=== PATIENT | male | born 1945 | race Caucasian/White ===

== ENCOUNTER 2016-12-01 06:29 | Inpatient (IN) | payer MEDICARE, OTHER ==
--- NOTE | ~2016-12-01 | OP ---
Record Of Operation [facility] [address] [place]. [address] NAME: JONATHAN GARVEY : 41 STATUS : ADM IN PAT#: [id number] AGE: 71 ADM/REG DATE : 12/01/16 MR#: [id number] REPORT SERV DATE: 12/04/16 DICTATED BY: JIN WEATHERS JR. DATE: 12/03/16 REPORT STATUS : Draft TRANSCRIBED BY: MODL DATE: 12/03/16 DATE OF PROCEDURE: 12/03/2016 SURGEON: Jin Weathers M.D. ENDO TECH: Sherley Galarza. PROCEDURE: Exploratory laparotomy, resection of portion of ileum with ileoileostomy; resection of sigmoid colon with coloproctostomy. PREOPERATIVE DIAGNOSIS: Small bowel obstruction. POSTOPERATIVE DIAGNOSIS: Small bowel obstruction with Crohn's disease and sigmoid diverticulitis. ANESTHESIA: General. INDICATIONS: The patient has history of intraabdominal surgery with repair of recurrent ventral hernia and also cholecystectomy. He was admitted two or three days prior with complaints of abdominal pain with nausea, emesis, and cramping. His initial imaging demonstrated small bowel obstruction. Initially, this appeared to improve over the first 24 hours, but then persisted and worsened with increasing vomiting and persistent small bowel distention on x-rays consistent with small bowel obstruction, and operation was indicated. FINDINGS: On exploration of the abdomen, there was moderate to large amount of ascites present that was clear. There was distended small bowel to the area of the ileum, where there was a segment of inflamed bowel with thickening fibrosis, fat wrapping, and then relatively spared distal ileum. This was the site of the obstruction. This area was resected, and gross examination with pathology showed this was likely consistent with Crohn's disease on the base of the gross findings with grossly negative margins. Satisfactory ileoileostomy was created. Additionally, there was a mass in the area of the sigmoid colon. This appeared to be at least partially obstructing and he would like to proceed with resection of this. This demonstrated diverticulitis with no evidence of any neoplasm. A coloproctostomy was created. No other significant findings were encountered. There was a previous hernia repair, which was intact. Hernia mesh was divided and reapproximated to enter the abdomen. There were essentially no adhesions. DESCRIPTION OF PROCEDURE: With adequate general anesthesia, the patient was placed in the supine position. The abdomen was prepped and draped sterilely. A midline incision was made. The dissection was carried down sharply through the subcutaneous tissues. The fascia was divided. The underlying mesh was divided and the peritoneum cavity was entered. The above-noted findings were encountered. Sites were selected for revision of the ileum, proximal and distal to the abnormality and this was accomplished with CELE 75. Then, the mesentery was divided with the LigaSure device and this enabled to remove the specimen that was submitted to pathology fresh for examination with the above results. Mesenteric Record Of Operation [facility] [address] [place]. [address] NAME: JONATHAN GARVEY : 41 STATUS : ADM IN PAT#: [id number] AGE: 71 ADM/REG DATE : 12/01/16 MR#: [id number] REPORT SERV DATE: 12/04/16 DICTATED BY: JIN WEATHERS JR. DATE: 12/03/16 REPORT STATUS : Draft TRANSCRIBED BY: KATE DATE: 12/03/16 bleeding was additionally controlled with suture ligatures of silk, then a [id number] functional end-to-end ileoileostomy, which was created with the CELE 75. The open end was closed with TA 60 and this was reinforced with suture of 3-0 silk. Then, the abdomen was explored. There were noted some adhesions of the omentum down to the sigmoid, were divided, then sites were selected for revision of the bowel proximal to the mass and this was accomplished with a CELE 75. Then, the rectosigmoid area was divided with the contour stapling device. The mesentery again was divided with LigaSure device and also clamps and ligatures of silk and then the proximal bowel and the distal bowel were cleared of adherent fat and a hand-sewn end-to-end anastomosis was secured with two layers of interrupted 3-0 silk sutures. Additional bleeding was controlled with suture ligatures of silk. This produced satisfactory anastomosis. The abdomen was irrigated with copious amounts of saline. Hemostasis was assured. The wound was closed by approximating the fascia with a running 0 PDS suture. Wound VAC was placed with black foam in the subcutaneous tissues, an occlusive dressing, and suction with -125. Then, the rectum was dilated four fingerbreadths. The patient left the operating room in satisfactory condition. ESTIMATED BLOOD LOSS: 200 mL. DANG/KATE Jin Weathers Jr., M.D. / [id number] CC: Talita Rutherford Jr., M.D.
--- NOTE | ~2016-12-01 | CN ---
Consultation Report [facility] [address] [place]. [address] NAME: JONATHAN MCMILLAN : 41 STATUS : ADM IN PAT#: [id number] AGE: 71 ADM/REG DATE : 12/01/16 MR#: [id number] REPORT SERV DATE: 12/09/16 DICTATED BY: TRUDI OCAMPO DATE: 12/09/16 REPORT STATUS : Draft TRANSCRIBED BY: MODL DATE: 12/09/16 GI CONSULTATION DATE OF CONSULTATION: 12/09/2016 REASON FOR CONSULTATION: Evaluation and management of new diagnosis of small-bowel Crohn's disease. HISTORY OF PRESENT ILLNESS: Mr. Mcmillan is a very pleasant 71-year-old male patient, known to Dr. Timo Rodriguez, who presented to [facility] on 12/01 as a transfer from [facility] [place] secondary to abdominal pain with CT findings of a small-bowel obstruction. His pain had started the night before he presented to the hospital, described as right-sided cramping with nausea and vomiting. He has a history of colonoscopy with Dr. Rodriguez in 03/2016 with sigmoid colon polyps as well as diverticulosis of the sigmoid colon and descending colon with nonbleeding internal hemorrhoids. He states that in the past, he has had a small-bowel obstruction secondary to adhesions, which did require surgery. Dr. Hoff initially attempted nonoperative management, however, was taken to surgery on 12/03 with him undergoing exploratory lap with resection of a portion of the ileum with ileoileostomy as well as resection of the sigmoid colon secondary to diverticulitis. Pathology did show Crohn's disease, thus GI consultation was obtained. The patient is set to go home tomorrow. He is tolerating a diabetic diet. I have discussed with the patient as well as the , who is present at the bedside, we will have him see Dr. Rodriguez in two weeks to establish a plan of care for his newly diagnosed small-bowel Crohn's disease. PAST MEDICAL HISTORY: Arthritis, hypertension, diabetes, tumor of the skull. He states that he has had surgery to his femur as well as abdominal surgery secondary to small-bowel obstruction and lysis of adhesions, colon polyps and diverticulosis. SOCIAL HISTORY: He is . He denies alcohol, tobacco, or illicits. FAMILY HISTORY: Noncontributory from a GI standpoint. ALLERGIES: LISTED TO BEE STINGS AND AMBIEN. HOME MEDICATIONS: Lotrel, aspirin, Tenormin, CoQ10 enzyme, Aricept, TriCor, glucosamine, Fortamet, multivitamin, fish oil, Zoloft, Januvia, and garlic. REVIEW OF SYSTEMS: A 10-point review of systems obtained, pertinent positives addressed in the history of present illness. PERTINENT LABORATORY DATA: Sodium 140, potassium 3.7, BUN is 10, creatinine 0.36. White count 12.3, hemoglobin 11.6, hematocrit 34.3, platelet count 289. Consultation Report [address] [address] NAME: JONATHAN MCMILLAN : 41 STATUS : ADM IN PAT#: [id number] AGE: 71 ADM/REG DATE : 12/01/16 MR#: [id number] REPORT SERV DATE: 12/09/16 DICTATED BY: TRUDI OCAMPO DATE: 12/09/16 REPORT STATUS : Draft TRANSCRIBED BY: KATE DATE: 12/09/16 PHYSICAL EXAMINATION: VITAL SIGNS: Temperature 98.7, pulse 78, respirations 18, and blood pressure 141/66. NEURO: Reveals an alert male, resting in bed with no focal deficits. GENERAL: Cooperative, in no apparent distress. Awake and oriented x3. HEAD, EARS, EYES, NOSE, AND THROAT: Anicteric. Pupils equal, round, reactive to light and accommodation. Normocephalic and atraumatic. NECK: No JVD. No palpable nodes. Supple. LUNGS: Decreased throughout with normal respiratory effort exhibited. CARDIOVASCULAR SYSTEM: Regular rate and rhythm. ABDOMEN: Soft with tenderness secondary to surgical intervention. EXTREMITIES: No edema. Normal distal pulses. SKIN: Warm, dry, and intact. ASSESSMENT: 1. Status post small-bowel obstruction with resection, positive pathology with Crohn's disease. 2. History of colon polyps. 3. History of diverticulosis. PLAN: We will set him up to see Dr. Rodriguez in two weeks. His appointment is on 12/23/2016 at 9:45 in the morning. We will sign off. NELLY/KATE Trudi JACQUELINE Alonso / [id number] CC: Talita Rutherford Jr., M.D.
--- NOTE | ~2016-12-01 | HP ---
History And Physical [place] [address] [facility] [place]. [address] NAME: JONATHAN GARVEY : 41 STATUS : ADM IN [facility]#: [id number] AGE: 71 ADM/REG DATE : 12/01/16 MR#: [id number] REPORT SERV DATE: 12/01/16 DICTATED BY: JIN HOFF JR. DATE: 12/01/16 REPORT STATUS : Draft TRANSCRIBED BY: KATE DATE: 12/01/16 DATE OF ADMISSION: 12/01/2016 CHIEF COMPLAINT: Abdominal pain, possible small-bowel obstruction. HISTORY OF PRESENT ILLNESS: This is a 71-year-old male who had presented to [facility] Emergency Department approximately midnight last night with complaints of 6 hours of severe abdominal pain. This was described as mid abdomen to the right side with cramping nature with associated nausea and emesis x1. He had bowel movement earlier in the day, none since. He did note that he had a large amount of popcorn earlier in the day and also some soup with corn. This is somewhat outside of his usual dietary issues. He does have a past medical history of repair of recurrent incarcerated hernia or recurrent complicated hernia with history of infected mesh. He also has had previous cholecystectomy. Laboratories in the ER did show an elevated white count. He had a CT scan which showed evidence of partial small bowel obstruction with some mesenteric edema. He elected transfer to [facility] for care by me and he was therefore transferred here for further care. He did receive IV fluids and a dose of morphine and Zofran and he feels better but he does note some ongoing soreness. He denies current nausea but does note some distention. 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 SOCIAL HISTORY: He does not smoke or drink. Lives at home with his family. FAMILY HISTORY: Noncontributory. REVIEW OF SYSTEMS: GENERAL: No fever, chills, or weight loss. HEENT: Negative except for dry mouth. PULMONARY: Negative. CARDIAC: No acute symptoms. GI: As above. : No symptoms. MUSCULOSKELETAL: No acute symptoms. ENDOCRINE: Negative. HEME: Negative. PSYCHIATRIC: Negative. PHYSICAL EXAMINATION: GENERAL: Shows an elderly male, who is in very mild distress. VITAL SIGNS: Recorded. HEENT: The head and neck exam shows pupils are equal and reactive. He has no icteric changes. Mucous membranes are quite dry. NECK: Supple. There is no neck mass or thyromegaly. LUNGS: Clear bilaterally. CARDIOVASCULAR: Normal S1 and S2 without murmur. ABDOMEN: Somewhat distended. There is a healed incision. There is some mild tenderness on History And Physical [address] [address] NAME: JONATHAN GARVEY : 41 STATUS : ADM IN [facility]#: [id number] AGE: 71 ADM/REG DATE : 12/01/16 MR#: [id number] REPORT SERV DATE: 12/01/16 DICTATED BY: JIN HOFF JR. DATE: 12/01/16 REPORT STATUS : Draft TRANSCRIBED BY: KATE DATE: 12/01/16 the right side. There was noted to be a peritoneal signs. There is no palpable mass or hepatosplenomegaly. EXTREMITIES: Show no clubbing, cyanosis, or edema. LAB DATA: Studies are reviewed. There is report of a CT scan although images are unavailable. Laboratories are reviewed. IMPRESSION: Small bowel obstruction, appears to be partial in nature. PLAN: Will be to continue IV hydration. Maintain bowel rest and treat symptomatically as needed. We will check abdominal x-rays and obtain outside films for review and hope to resolve this without surgical intervention. This was discussed with the patient's . They understand and agree. DANG/KATE Jin Hoff Jr., M.D. / [id number] CC: Jin Hoff Jr., M.D.
--- NOTE | ~2016-12-01 | DS ---
Discharge Summary [facility] [address] [place]. [address] NAME: JONATAHN GARVEY : 41 STATUS : DIS IN PAT#: [id number] AGE: 71 ADM/REG DATE : 12/01/16 MR#: [id number] REPORT SERV DATE: 12/18/16 DICTATED BY: JIN WEATHERS JR. DATE: 12/17/16 REPORT STATUS : Draft TRANSCRIBED BY: KATE DATE: 12/17/16 Data Collection from hospitalization DISCHARGE DIAGNOSIS(ES): 1. Small bowel obstruction. 2. Crohn's disease. 3. Sigmoid diverticulitis. 4. Hypertension. 5. Diabetes mellitus. 6. 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 7. Arthritis. CONSULTATIONS: Minor Alonso. PROCEDURES PERFORMED: Exploratory laparotomy, resection of portion of ileum with ileoileostomy, resection of sigmoid colon with coloproctostomy, 12/03/2016. PATHOLOGY: Ileum partial small bowel resection, Crohn's disease proximal and distal margin free of activity, chronicity, no granulomas or dysplasia, colon sigmoid resection, diverticulosis, margins viable, no evidence of chronicity. MEDICATIONS: Tenormin 25 mg at bedtime; Lotrel one every morning; Fortamet 500 mg twice daily; Januvia 25 mg at bedtime; Zoloft 50 mg twice daily; Tricor 145 mg at bedtime; Aricept 10 mg every morning; aspirin 81 mg Wednesday, Wednesday, and Wednesday at bedtime; CoQ10 at 200 mg at bedtime; multivitamin without minerals one daily; fish oil 1000 mg daily; glucosamine chondroitin one daily; garlic 1000 mg daily. CONDITION AT DISCHARGE: Upon discharge, he did appear to be doing well and had no complaints. DISPOSITION: He had been discharged home to continue an 1800-calorie ADA, low-cholesterol, soft diet with activity as discussed. He was to follow up with me on 12/18/2016, follow up with Dr. Timo Rodriguez on 12/23/2016. Home Healthcare was in place upon discharge. HOSPITAL COURSE: This 71-year-old male had presented to [facility] Emergency Department approximately midnight last night with complaints of six hours of severe abdominal pain. This was described as midabdomen to the right side with cramping nature with associated nausea and emesis x1. He had bowel movement earlier in the day, none since. He did note that he had a large amount of popcorn earlier in the day and also some soup with corn. This was somewhat outside of his usual dietary issues. He does have a past medical history of repair of recurrent incarcerated hernia or recurrent complicated hernia with history of infected mesh. He had also had previous cholecystectomy. Laboratories in the emergency room did show an elevated white count. He had a CT scan, which showed evidence of partial small bowel obstruction with some mesenteric edema. He elected transfer to [facility] for care by co and he was, therefore, transferred to [facility] for further care. He did receive IV fluids and a dose of morphine and Zofran, and did feel better, but he did note some ongoing soreness. He denied any nausea, but did note some distention. He was admitted for further evaluation and treatment. Upon admission to the hospital, he had been placed on Discharge Summary [address] [address] NAME: JONATHAN GARVEY : 41 STATUS : DIS IN PAT#: [id number] AGE: 71 ADM/REG DATE : 12/01/16 MR#: [id number] REPORT SERV DATE: 12/18/16 DICTATED BY: JIN WEATHERS JR. DATE: 12/17/16 REPORT STATUS : Draft TRANSCRIBED BY: KATE DATE: 12/17/16 electrolyte replacement guidelines. He was also begun on level two sliding scale insulin and was to be n.p.o. except for ice chips and medications. Following the day of admission, he was noted to be feeling better and had no nausea or vomiting noted. His abdomen was soft and less distended. He had been placed on clear liquids. On 12/03/2016, he was noted to have increase in distention. He was afebrile and his vital signs were stable. His abdomen was distended; however, soft and nontender. Surgery had been discussed with the patient on 12/04/2016. He was continued on supportive care and had no new complaints. He had been taken to the operating room, where he did undergo the above procedure. He did tolerate this well and was transferred to the recovery room. On postop day one, he did appear to be doing well and had no complaints. His Otto catheter was removed and he was encouraged to increase his activity. On postop day two, he did remain in stable condition and the NG tube was clamped. He was continued on IV fluids as well as NEW ACCOUNT INTERVIEWER. On 12/07/2016, he had remained in stable condition. Had no nausea or vomiting. NEW ACCOUNT INTERVIEWER was discontinued and he was continued on IV fluids. On 12/08/2016, he did remain in stable condition and his diet was being advanced slowly. He did appear to be tolerating this. He did remain in stable condition throughout the next few days as his diet was being slowly advanced. He had also been seen on 12/09/2016 by Minor Alonso for new diagnosis of small bowel Crohn's disease. It was recommended he see Dr. Rodriguez in two weeks postoperatively. On 12/10/2016, did continue in stable condition and had no new complaints noted. His incisions looked good. Home Healthcare was being arranged. He did continue to do well and was then discharged on 12/11/2016 with the above instructions. Information collected by: Hemanth Abdi.Dajuan. I submit the above information as my discharge summary. SANJIV/KATE Jin Weathers Jr., M.D. / [id number] CC: Talita Rutherford Jr., M.D. Vijaykurmar Patel, M.D.
[~2016-12-01 06:29] MED LIST: ASAB PO; ATEN25 PO; B COMPLETE PO; CENTRUM PO; CENTRUM TAB1 TAB PO; CO Q-10100 MG PO; COSAMIN DS1 TAB PO; CYANO1000T PO; FISH OIL1200 MG PO; FISH-EPA1000 MG PO; GARLIC; GLUCCHONDR PO; GLUCPH PO; JANUVIA50 PO; KRILL OIL PO; LOTREL1 CA1 PO; LOTREL1 CA2 PO; MULTIVIT/MIN PO; TRICOR145 PO; ZOL50 PO
[2016-12-01] MEDS ORDERED: ATEN25 PO (11:05)
[2016-12-01] MEDS ORDERED: LOTREL1 CA1 PO (11:06)
[2016-12-01] MEDS ORDERED: FORTAMET500 MG PO (11:07)
[2016-12-01] MEDS ORDERED: JANUVIA25 MG PO (11:08)
[2016-12-01] MEDS ORDERED: ZOL50 PO ×2 (11:08→11:09)
[2016-12-01] MEDS ORDERED: TRICOR145 PO (11:09)
[2016-12-01] MEDS ORDERED: ASAB PO (11:10)
[2016-12-01] MEDS ORDERED: ARICEPT10 PO (11:10)
[2016-12-01] MEDS ORDERED: CO Q-10200 MG PO (11:11)
[2016-12-01] MEDS ORDERED: Multivitamin Tab (11:11)
[2016-12-01] MEDS ORDERED: FISH-EPA1000 MG PO (11:11)
[2016-12-01] MEDS ORDERED: GLUCCHONDR PO (11:12)
[2016-12-01] MEDS ORDERED: garlic PO (11:13)
[2016-12-01 17:34] LABS: BASOPHILS 0.2 %; BASOPHILS ABSOLUTE 0.02 10/3/uL (0.0-0.16); EOSINOPHILS 0.6 %; EOSINOPHILS ABSOLUTE 0.06 10/3/uL (0.0-0.53); HEMATOCRIT 43.1 % (40.0-51.0); HEMOGLOBIN 14.1 g/dL (13.6-17.8); IMMATURE GRANULOCYTES 0.3 %; IMMATURE GRANULOCYTES ABSOLUTE 0.03 10/3/uL (0.0-0.11); LYMPHOCYTES 9.7 %; LYMPHOCYTES ABSOLUTE 0.95 10/3/uL (0.67-4.30); MEAN CORPUS HGB CONC 32.7 g/dL (32.0-36.0); MEAN CORPUSCULAR HEMOGLOB 29.4 pg (26.0-34.0); MEAN PLATELET VOLUME 9.8 fL (9.2-13.0); MONOCYTES 10.4 %; MONOCYTES ABSOLUTE 1.02 10/3/uL (0.21-1.20); NEUTROPHILS 78.8 %; NEUTROPHILS ABSOLUTE 7.69 10/3/uL (2.02-8.40); PLATELET COUNT 225 10/3/uL (150-400); RBC DISTRIBUTION WIDTH 14.5 % (12.0-16.0); RED CELL COUNT 4.79 10/6/uL (4.7-6.1); WHITE BLOOD CELLS 9.8 10/3/uL (4.5-10.5)
[2016-12-01 17:36] LABS: MANUAL DIFF NO %
[2016-12-01 17:48] LABS: A/G RATIO 0.9 (0.7-1.9); ALBUMIN 3.2 G/DL (3.5-5.0); ALKALINE PHOSPHATASE 32 U/L (45-117); CALCIUM, SERUM 8.6 MG/DL (8.5-10.4); CHLORIDE, SERUM 108 MMOL/L (96-112); CO2 (CARBON DIOXIDE) 28 MMOL/L (24-34); CREATININE 0.71 MG/DL (0.70-1.30); GFR AFRICAN AMERICAN 108 ML/MIN (>=60); GFR NON AFRICAN AMERICAN 93 ML/MIN (>=60); GLOBULIN 3.5 G/DL (2.5-4.1); GLUCOSE, SERUM 110 MG/DL (60-99); SGOT(AST) 21 U/L (5-40); SGPT(ALT) 23 U/L (5-65); SODIUM, SERUM 146 MMOL/L (135-148); TOTAL BILIRUBIN 0.5 MG/DL (0-1.2); TOTAL PROTEIN 6.7 G/DL (6.0-8.5)
[2016-12-01 17:52] LABS: BUN (BLOOD UREA NITROGEN) 22 MG/DL (6-23)
[2016-12-02 04:57] LABS: BASOPHILS 0.1 %; BASOPHILS ABSOLUTE 0.01 10/3/uL (0.0-0.16); EOSINOPHILS 2.6 %; EOSINOPHILS ABSOLUTE 0.19 10/3/uL (0.0-0.53); HEMATOCRIT 43.8 % (40.0-51.0); HEMOGLOBIN 14.3 g/dL (13.6-17.8); IMMATURE GRANULOCYTES 0.1 %; IMMATURE GRANULOCYTES ABSOLUTE 0.01 10/3/uL (0.0-0.11); LYMPHOCYTES 14.8 %; LYMPHOCYTES ABSOLUTE 1.09 10/3/uL (0.67-4.30); MEAN CORPUS HGB CONC 32.6 g/dL (32.0-36.0); MEAN CORPUSCULAR HEMOGLOB 29.8 pg (26.0-34.0); MEAN CORPUSCULAR VOLUME 91.3 fL (80-100); MEAN PLATELET VOLUME 9.8 fL (9.2-13.0); MONOCYTES ABSOLUTE 0.96 10/3/uL (0.21-1.20); NEUTROPHILS 69.4 %; NEUTROPHILS ABSOLUTE 5.11 10/3/uL (2.02-8.40); PLATELET COUNT 230 10/3/uL (150-400); RBC DISTRIBUTION WIDTH 14.6 % (12.0-16.0); WHITE BLOOD CELLS 7.4 10/3/uL (4.5-10.5)
[2016-12-02 05:02] LABS: MANUAL DIFF NO %
[2016-12-02 05:06] LABS: CALCIUM, SERUM 8.5 MG/DL (8.5-10.4); CHLORIDE, SERUM 109 MMOL/L (96-112); CO2 (CARBON DIOXIDE) 31 MMOL/L (24-34); CREATININE 0.81 MG/DL (0.70-1.30); GFR AFRICAN AMERICAN 102 ML/MIN (>=60); GFR NON AFRICAN AMERICAN 88 ML/MIN (>=60); GLUCOSE, SERUM 129 MG/DL (60-99); SODIUM, SERUM 146 MMOL/L (135-148)
[2016-12-02 05:25] LABS: BUN (BLOOD UREA NITROGEN) 17 MG/DL (6-23)
[2016-12-03 05:44] LABS: BUN (BLOOD UREA NITROGEN) 14 MG/DL (6-23); CALCIUM, SERUM 8.7 MG/DL (8.5-10.4); CHLORIDE, SERUM 106 MMOL/L (96-112); CO2 (CARBON DIOXIDE) 26 MMOL/L (24-34); CREATININE 0.62 MG/DL (0.70-1.30); GFR AFRICAN AMERICAN 114 ML/MIN (>=60); GFR NON AFRICAN AMERICAN 98 ML/MIN (>=60); GLUCOSE, SERUM 139 MG/DL (60-99); SODIUM, SERUM 142 MMOL/L (135-148)
[2016-12-03 20:33] LABS: BASOPHILS 0 %; EOSINOPHILS 0.5 %; EOSINOPHILS ABSOLUTE 0.02 10/3/uL (0.0-0.53); HEMATOCRIT 42.5 % (40.0-51.0); IMMATURE GRANULOCYTES 0.8 %; IMMATURE GRANULOCYTES ABSOLUTE 0.03 10/3/uL (0.0-0.11); LYMPHOCYTES 14.2 %; LYMPHOCYTES ABSOLUTE 0.54 10/3/uL (0.67-4.30); MANUAL DIFF NO %; MEAN CORPUS HGB CONC 32.9 g/dL (32.0-36.0); MEAN CORPUSCULAR HEMOGLOB 29.9 pg (26.0-34.0); MEAN CORPUSCULAR VOLUME 90.8 fL (80-100); MEAN PLATELET VOLUME 9.4 fL (9.2-13.0); MONOCYTES 12.3 %; MONOCYTES ABSOLUTE 0.47 10/3/uL (0.21-1.20); NEUTROPHILS 72.2 %; NEUTROPHILS ABSOLUTE 2.75 10/3/uL (2.02-8.40); PLATELET COUNT 181 10/3/uL (150-400); RBC DISTRIBUTION WIDTH 14.4 % (12.0-16.0); RED CELL COUNT 4.68 10/6/uL (4.7-6.1); WHITE BLOOD CELLS 3.8 10/3/uL (4.5-10.5)
[2016-12-03 20:45] LABS: BUN (BLOOD UREA NITROGEN) 15 MG/DL (6-23); CHLORIDE, SERUM 108 MMOL/L (96-112); CREATININE 0.71 MG/DL (0.70-1.30); GFR AFRICAN AMERICAN 108 ML/MIN (>=60); GFR NON AFRICAN AMERICAN 93 ML/MIN (>=60); POTASSIUM, SERUM 3.7 MMOL/L (3.5-5.3); SODIUM, SERUM 142 MMOL/L (135-148)
[2016-12-03 20:46] LABS: CALCIUM, SERUM 7.5 MG/DL (8.5-10.4); CO2 (CARBON DIOXIDE) 20 MMOL/L (24-34); GLUCOSE, SERUM 186 MG/DL (60-99)
[2016-12-04 04:06] LABS: BASOPHILS 0 %; EOSINOPHILS 0 %; HEMATOCRIT 39.7 % (40.0-51.0); HEMOGLOBIN 13.2 g/dL (13.6-17.8); IMMATURE GRANULOCYTES 0.4 %; IMMATURE GRANULOCYTES ABSOLUTE 0.03 10/3/uL (0.0-0.11); LYMPHOCYTES 4.2 %; LYMPHOCYTES ABSOLUTE 0.34 10/3/uL (0.67-4.30); MEAN CORPUS HGB CONC 33.2 g/dL (32.0-36.0); MEAN CORPUSCULAR HEMOGLOB 29.8 pg (26.0-34.0); MEAN CORPUSCULAR VOLUME 89.6 fL (80-100); MEAN PLATELET VOLUME 9.8 fL (9.2-13.0); MONOCYTES 12.6 %; MONOCYTES ABSOLUTE 1.01 10/3/uL (0.21-1.20); NEUTROPHILS 82.8 %; NEUTROPHILS ABSOLUTE 6.64 10/3/uL (2.02-8.40); PLATELET COUNT 198 10/3/uL (150-400); RBC DISTRIBUTION WIDTH 14.1 % (12.0-16.0); RED CELL COUNT 4.43 10/6/uL (4.7-6.1)
[2016-12-04 04:09] LABS: MANUAL DIFF NO %
[2016-12-04 04:21] LABS: ALBUMIN 2.9 G/DL (3.5-5.0); CALCIUM, SERUM 7.6 MG/DL (8.5-10.4); CHLORIDE, SERUM 108 MMOL/L (96-112); CREATININE 0.66 MG/DL (0.70-1.30); GFR AFRICAN AMERICAN 111 ML/MIN (>=60); GFR NON AFRICAN AMERICAN 96 ML/MIN (>=60); GLOBULIN 2.8 G/DL (2.5-4.1); GLUCOSE, SERUM 198 MG/DL (60-99); POTASSIUM, SERUM 3.8 MMOL/L (3.5-5.3); SGOT(AST) 9 U/L (5-40); SGPT(ALT) 14 U/L (5-65); SODIUM, SERUM 143 MMOL/L (135-148); TOTAL BILIRUBIN 0.5 MG/DL (0-1.2); TOTAL PROTEIN 5.7 G/DL (6.0-8.5)
[2016-12-04 04:25] LABS: ALKALINE PHOSPHATASE 21 U/L (45-117); BUN (BLOOD UREA NITROGEN) 11 MG/DL (6-23); CO2 (CARBON DIOXIDE) 25 MMOL/L (24-34)
[2016-12-04 16:09] LABS: BUN (BLOOD UREA NITROGEN) 9 MG/DL (6-23); CALCIUM, SERUM 7.9 MG/DL (8.5-10.4); CHLORIDE, SERUM 108 MMOL/L (96-112); CO2 (CARBON DIOXIDE) 25 MMOL/L (24-34); CREATININE 0.62 MG/DL (0.70-1.30); GFR AFRICAN AMERICAN 114 ML/MIN (>=60); GFR NON AFRICAN AMERICAN 98 ML/MIN (>=60); POTASSIUM, SERUM 3.9 MMOL/L (3.5-5.3); SODIUM, SERUM 144 MMOL/L (135-148)
[2016-12-04 16:10] LABS: GLUCOSE, SERUM 139 MG/DL (60-99)
[2016-12-05 07:08] LABS: BUN (BLOOD UREA NITROGEN) 10 MG/DL (6-23); CHLORIDE, SERUM 107 MMOL/L (96-112); CO2 (CARBON DIOXIDE) 29 MMOL/L (24-34); CREATININE 0.58 MG/DL (0.70-1.30); GFR AFRICAN AMERICAN 117 ML/MIN (>=60); GFR NON AFRICAN AMERICAN 101 ML/MIN (>=60); GLUCOSE, SERUM 120 MG/DL (60-99); POTASSIUM, SERUM 3.9 MMOL/L (3.5-5.3); SODIUM, SERUM 142 MMOL/L (135-148)
[2016-12-05 07:24] LABS: BASOPHILS 0.1 %; BASOPHILS ABSOLUTE 0.01 10/3/uL (0.0-0.16); EOSINOPHILS 0.8 %; EOSINOPHILS ABSOLUTE 0.07 10/3/uL (0.0-0.53); HEMATOCRIT 37.1 % (40.0-51.0); HEMOGLOBIN 12.3 g/dL (13.6-17.8); IMMATURE GRANULOCYTES 0.3 %; IMMATURE GRANULOCYTES ABSOLUTE 0.03 10/3/uL (0.0-0.11); LYMPHOCYTES 8.9 %; MEAN CORPUS HGB CONC 33.2 g/dL (32.0-36.0); MEAN CORPUSCULAR HEMOGLOB 29.3 pg (26.0-34.0); MEAN CORPUSCULAR VOLUME 88.3 fL (80-100); MEAN PLATELET VOLUME 9.7 fL (9.2-13.0); MONOCYTES 12.6 %; MONOCYTES ABSOLUTE 1.13 10/3/uL (0.21-1.20); NEUTROPHILS 77.3 %; NEUTROPHILS ABSOLUTE 6.91 10/3/uL (2.02-8.40); PLATELET COUNT 195 10/3/uL (150-400); RBC DISTRIBUTION WIDTH 14.7 % (12.0-16.0)
[2016-12-05 07:26] LABS: MANUAL DIFF NO %
[2016-12-06 07:30] LABS: BASOPHILS 0.1 %; BASOPHILS ABSOLUTE 0.01 10/3/uL (0.0-0.16); EOSINOPHILS 2.1 %; HEMATOCRIT 36.1 % (40.0-51.0); HEMOGLOBIN 11.8 g/dL (13.6-17.8); IMMATURE GRANULOCYTES 0.5 %; IMMATURE GRANULOCYTES ABSOLUTE 0.05 10/3/uL (0.0-0.11); LYMPHOCYTES ABSOLUTE 0.97 10/3/uL (0.67-4.30); MEAN CORPUS HGB CONC 32.7 g/dL (32.0-36.0); MEAN CORPUSCULAR HEMOGLOB 29.1 pg (26.0-34.0); MEAN CORPUSCULAR VOLUME 89.1 fL (80-100); MEAN PLATELET VOLUME 9.7 fL (9.2-13.0); MONOCYTES 8.6 %; MONOCYTES ABSOLUTE 0.83 10/3/uL (0.21-1.20); NEUTROPHILS 78.7 %; NEUTROPHILS ABSOLUTE 7.61 10/3/uL (2.02-8.40); PLATELET COUNT 221 10/3/uL (150-400); RBC DISTRIBUTION WIDTH 14.5 % (12.0-16.0); RED CELL COUNT 4.05 10/6/uL (4.7-6.1); WHITE BLOOD CELLS 9.7 10/3/uL (4.5-10.5)
[2016-12-06 07:31] LABS: MANUAL DIFF NO %
[2016-12-06 07:45] LABS: BUN (BLOOD UREA NITROGEN) 13 MG/DL (6-23); CALCIUM, SERUM 8.2 MG/DL (8.5-10.4); CHLORIDE, SERUM 105 MMOL/L (96-112); CO2 (CARBON DIOXIDE) 25 MMOL/L (24-34); CREATININE 0.47 MG/DL (0.70-1.30); GFR AFRICAN AMERICAN 128 ML/MIN (>=60); GFR NON AFRICAN AMERICAN 110 ML/MIN (>=60); GLUCOSE, SERUM 96 MG/DL (60-99); POTASSIUM, SERUM 3.8 MMOL/L (3.5-5.3); SODIUM, SERUM 142 MMOL/L (135-148)
[2016-12-07 07:15] LABS: BASOPHILS 0.2 %; BASOPHILS ABSOLUTE 0.02 10/3/uL (0.0-0.16); EOSINOPHILS 1.2 %; EOSINOPHILS ABSOLUTE 0.15 10/3/uL (0.0-0.53); HEMATOCRIT 34.2 % (40.0-51.0); HEMOGLOBIN 11.7 g/dL (13.6-17.8); IMMATURE GRANULOCYTES 0.4 %; IMMATURE GRANULOCYTES ABSOLUTE 0.05 10/3/uL (0.0-0.11); LYMPHOCYTES ABSOLUTE 1.35 10/3/uL (0.67-4.30); MEAN CORPUS HGB CONC 34.2 g/dL (32.0-36.0); MEAN CORPUSCULAR HEMOGLOB 29.2 pg (26.0-34.0); MEAN PLATELET VOLUME 9.4 fL (9.2-13.0); MONOCYTES 4.3 %; MONOCYTES ABSOLUTE 0.53 10/3/uL (0.21-1.20); NEUTROPHILS 82.9 %; NEUTROPHILS ABSOLUTE 10.12 10/3/uL (2.02-8.40); PLATELET COUNT 238 10/3/uL (150-400); RBC DISTRIBUTION WIDTH 14.4 % (12.0-16.0); RED CELL COUNT 4.01 10/6/uL (4.7-6.1); WHITE BLOOD CELLS 12.2 10/3/uL (4.5-10.5)
[2016-12-07 07:16] LABS: MANUAL DIFF NO %; MEAN CORPUSCULAR VOLUME 85.3 fL (80-100)
[2016-12-07 07:37] LABS: BUN (BLOOD UREA NITROGEN) 8 MG/DL (6-23); CALCIUM, SERUM 7.7 MG/DL (8.5-10.4); CHLORIDE, SERUM 103 MMOL/L (96-112); CO2 (CARBON DIOXIDE) 26 MMOL/L (24-34); CREATININE 0.29 MG/DL (0.70-1.30); GFR AFRICAN AMERICAN 156 ML/MIN (>=60); GFR NON AFRICAN AMERICAN 134 ML/MIN (>=60); GLUCOSE, SERUM 120 MG/DL (60-99); POTASSIUM, SERUM 3.8 MMOL/L (3.5-5.3); SODIUM, SERUM 140 MMOL/L (135-148)
[2016-12-08 07:02] LABS: BASOPHILS 0.2 %; BASOPHILS ABSOLUTE 0.02 10/3/uL (0.0-0.16); EOSINOPHILS 1.9 %; EOSINOPHILS ABSOLUTE 0.23 10/3/uL (0.0-0.53); HEMATOCRIT 35.1 % (40.0-51.0); HEMOGLOBIN 11.7 g/dL (13.6-17.8); IMMATURE GRANULOCYTES 0.9 %; IMMATURE GRANULOCYTES ABSOLUTE 0.11 10/3/uL (0.0-0.11); LYMPHOCYTES 5.4 %; LYMPHOCYTES ABSOLUTE 0.65 10/3/uL (0.67-4.30); MEAN CORPUS HGB CONC 33.3 g/dL (32.0-36.0); MEAN CORPUSCULAR HEMOGLOB 29.2 pg (26.0-34.0); MEAN CORPUSCULAR VOLUME 87.5 fL (80-100); MEAN PLATELET VOLUME 9.5 fL (9.2-13.0); MONOCYTES 9.9 %; MONOCYTES ABSOLUTE 1.18 10/3/uL (0.21-1.20); NEUTROPHILS 81.7 %; NEUTROPHILS ABSOLUTE 9.76 10/3/uL (2.02-8.40); PLATELET COUNT 270 10/3/uL (150-400); RBC DISTRIBUTION WIDTH 14.2 % (12.0-16.0); RED CELL COUNT 4.01 10/6/uL (4.7-6.1)
[2016-12-08 07:03] LABS: MANUAL DIFF NO %
[2016-12-08 07:15] LABS: BUN (BLOOD UREA NITROGEN) 8 MG/DL (6-23); CALCIUM, SERUM 7.6 MG/DL (8.5-10.4); CHLORIDE, SERUM 102 MMOL/L (96-112); CO2 (CARBON DIOXIDE) 24 MMOL/L (24-34); CREATININE 0.31 MG/DL (0.70-1.30); GFR AFRICAN AMERICAN 152 ML/MIN (>=60); GFR NON AFRICAN AMERICAN 131 ML/MIN (>=60); GLUCOSE, SERUM 101 MG/DL (60-99); POTASSIUM, SERUM 3.8 MMOL/L (3.5-5.3); SGOT(AST) 18 U/L (5-40); SGPT(ALT) 20 U/L (5-65); SODIUM, SERUM 138 MMOL/L (135-148); TOTAL BILIRUBIN 0.5 MG/DL (0-1.2); TOTAL PROTEIN 5.2 G/DL (6.0-8.5)
[2016-12-08 07:16] LABS: A/G RATIO 0.6 (0.7-1.9); ALKALINE PHOSPHATASE 32 U/L (45-117); GLOBULIN 3.2 G/DL (2.5-4.1)
[2016-12-09 06:11] LABS: BASOPHILS 0.2 %; BASOPHILS ABSOLUTE 0.02 10/3/uL (0.0-0.16); EOSINOPHILS 1.7 %; EOSINOPHILS ABSOLUTE 0.21 10/3/uL (0.0-0.53); HEMATOCRIT 34.3 % (40.0-51.0); HEMOGLOBIN 11.6 g/dL (13.6-17.8); IMMATURE GRANULOCYTES 1.1 %; IMMATURE GRANULOCYTES ABSOLUTE 0.13 10/3/uL (0.0-0.11); LYMPHOCYTES 8.7 %; LYMPHOCYTES ABSOLUTE 1.07 10/3/uL (0.67-4.30); MEAN CORPUS HGB CONC 33.8 g/dL (32.0-36.0); MEAN CORPUSCULAR HEMOGLOB 29.7 pg (26.0-34.0); MEAN CORPUSCULAR VOLUME 87.7 fL (80-100); MEAN PLATELET VOLUME 9.9 fL (9.2-13.0); MONOCYTES 6.9 %; MONOCYTES ABSOLUTE 0.85 10/3/uL (0.21-1.20); NEUTROPHILS 81.4 %; NEUTROPHILS ABSOLUTE 10.03 10/3/uL (2.02-8.40); PLATELET COUNT 289 10/3/uL (150-400); RBC DISTRIBUTION WIDTH 14.3 % (12.0-16.0); RED CELL COUNT 3.91 10/6/uL (4.7-6.1); WHITE BLOOD CELLS 12.3 10/3/uL (4.5-10.5)
[2016-12-09 06:13] LABS: MANUAL DIFF NO %
[2016-12-09 06:23] LABS: BUN (BLOOD UREA NITROGEN) 10 MG/DL (6-23); CALCIUM, SERUM 8.2 MG/DL (8.5-10.4); CHLORIDE, SERUM 103 MMOL/L (96-112); CO2 (CARBON DIOXIDE) 27 MMOL/L (24-34); CREATININE 0.36 MG/DL (0.70-1.30); GFR AFRICAN AMERICAN 143 ML/MIN (>=60); GFR NON AFRICAN AMERICAN 123 ML/MIN (>=60); GLUCOSE, SERUM 106 MG/DL (60-99); POTASSIUM, SERUM 3.7 MMOL/L (3.5-5.3); SODIUM, SERUM 140 MMOL/L (135-148)
[2016-12-10 05:56] LABS: BASOPHILS 0.3 %; BASOPHILS ABSOLUTE 0.04 10/3/uL (0.0-0.16); EOSINOPHILS 1.3 %; EOSINOPHILS ABSOLUTE 0.17 10/3/uL (0.0-0.53); HEMATOCRIT 32.9 % (40.0-51.0); IMMATURE GRANULOCYTES 0.6 %; IMMATURE GRANULOCYTES ABSOLUTE 0.08 10/3/uL (0.0-0.11); LYMPHOCYTES ABSOLUTE 1.03 10/3/uL (0.67-4.30); MEAN CORPUS HGB CONC 33.4 g/dL (32.0-36.0); MEAN CORPUSCULAR HEMOGLOB 29.3 pg (26.0-34.0); MEAN CORPUSCULAR VOLUME 87.7 fL (80-100); MEAN PLATELET VOLUME 9.7 fL (9.2-13.0); MONOCYTES 8.1 %; MONOCYTES ABSOLUTE 1.04 10/3/uL (0.21-1.20); NEUTROPHILS 81.7 %; PLATELET COUNT 332 10/3/uL (150-400); RBC DISTRIBUTION WIDTH 14.3 % (12.0-16.0); RED CELL COUNT 3.75 10/6/uL (4.7-6.1); WHITE BLOOD CELLS 12.9 10/3/uL (4.5-10.5)
[2016-12-10 05:58] LABS: CALCIUM, SERUM 8.3 MG/DL (8.5-10.4); CHLORIDE, SERUM 104 MMOL/L (96-112); CO2 (CARBON DIOXIDE) 26 MMOL/L (24-34); CREATININE 0.53 MG/DL (0.70-1.30); GFR AFRICAN AMERICAN 122 ML/MIN (>=60); GFR NON AFRICAN AMERICAN 105 ML/MIN (>=60); GLUCOSE, SERUM 118 MG/DL (60-99); POTASSIUM, SERUM 3.9 MMOL/L (3.5-5.3); SODIUM, SERUM 141 MMOL/L (135-148)
[2016-12-10 05:59] LABS: BUN (BLOOD UREA NITROGEN) 14 MG/DL (6-23)
[2016-12-10 06:11] LABS: MANUAL DIFF NO %
[2016-12-11 06:05] LABS: BASOPHILS 0.3 %; BASOPHILS ABSOLUTE 0.03 10/3/uL (0.0-0.16); EOSINOPHILS 2.6 %; HEMATOCRIT 32.5 % (40.0-51.0); HEMOGLOBIN 10.8 g/dL (13.6-17.8); IMMATURE GRANULOCYTES 0.8 %; IMMATURE GRANULOCYTES ABSOLUTE 0.09 10/3/uL (0.0-0.11); LYMPHOCYTES 7.5 %; LYMPHOCYTES ABSOLUTE 0.86 10/3/uL (0.67-4.30); MEAN CORPUS HGB CONC 33.2 g/dL (32.0-36.0); MEAN CORPUSCULAR HEMOGLOB 29.2 pg (26.0-34.0); MEAN CORPUSCULAR VOLUME 87.8 fL (80-100); MEAN PLATELET VOLUME 9.7 fL (9.2-13.0); MONOCYTES 6.8 %; MONOCYTES ABSOLUTE 0.78 10/3/uL (0.21-1.20); NEUTROPHILS ABSOLUTE 9.43 10/3/uL (2.02-8.40); PLATELET COUNT 354 10/3/uL (150-400); RBC DISTRIBUTION WIDTH 14.3 % (12.0-16.0); WHITE BLOOD CELLS 11.5 10/3/uL (4.5-10.5)
[2016-12-11 06:10] LABS: MANUAL DIFF NO %
[2016-12-11 06:19] LABS: BUN (BLOOD UREA NITROGEN) 14 MG/DL (6-23); CALCIUM, SERUM 8.1 MG/DL (8.5-10.4); CHLORIDE, SERUM 105 MMOL/L (96-112); CO2 (CARBON DIOXIDE) 27 MMOL/L (24-34); CREATININE 0.49 MG/DL (0.70-1.30); GFR AFRICAN AMERICAN 126 ML/MIN (>=60); GFR NON AFRICAN AMERICAN 108 ML/MIN (>=60); GLUCOSE, SERUM 105 MG/DL (60-99); POTASSIUM, SERUM 3.5 MMOL/L (3.5-5.3); SODIUM, SERUM 143 MMOL/L (135-148)
[2016-12-11] MEDS ORDERED: PCET PO (10:03)
[2017-06-09] MEDS ORDERED: IMOD PO (15:46)
[2017-06-17] MEDS ORDERED: PCET PO (09:07)
== END 2016-12-11 15:02 | disposition home health service (06) | DRG 330 ==
LOC: CDU1 06:29 → CDU2 07:22 → SDC/OF 12-03 15:25 → MIC 12-03 19:17 → 5SO 12-04 17:48
PROVIDERS: Specialist
PROC: 0DBN0ZZ Excision of Sigmoid Colon, Open Approach (ICD-10-PCS; principal; 2016-12-03 15:45)
PROC: 0DBB0ZZ Excision of Ileum, Open Approach (ICD-10-PCS; principal; 2016-12-03 15:45)
DX: K50.012 Crohn's disease of small intestine with intestinal obstruction (principal); K57.32 Diverticulitis of large intestine without perforation or abscess without bleeding; E11.9 Type 2 diabetes mellitus without complications; I10 Essential (primary) hypertension; K50.10 Crohn's disease of large intestine without complications; Z98.890 Other specified postprocedural states; Z90.49 Acquired absence of other specified parts of digestive tract; G47.33 Obstructive sleep apnea (adult) (pediatric); G25.0 Essential tremor; Z88.8 Allergy status to other drugs, medicaments and biological substances; Z91.030 Bee allergy status; Z79.899 Other long term (current) drug therapy; Z79.82 Long term (current) use of aspirin; Z79.84 Long term (current) use of oral hypoglycemic drugs; Z86.010 Personal history of colon polyps
CPT/HCPCS: 71010; 74000; 74020; 80048; 80053; 82962; 83605; 83735; 85025; 87641; 88307; 93005; A9270-GY; C9113; J0330; J0360; J0690; J1170; J2250; J2270; J2405; J2710; J3010; P9045; P9047